=== PATIENT | female | born 1975 | race Caucasian/White ===

== ENCOUNTER 2023-11-12 16:47 | Emergency (ER) | payer MEDICAID ==
[~2023-11-12] VITALS: Ht 149.9 cm; Wt 62.6 kg
[2023-11-12 17:07] VITALS: O2SAT 99
[2023-11-12 18:10] LABS: BASOPHILS % 0.7 % (0.0-2.0); EOSINOPHILS % 0.9 % (0.0-5.0); HEMATOCRIT. 31.5 % (36.0-48.0); HEMOGLOBIN. 10.5 g/dL (12.0-16.0); LYMPHOCYTES % 37.2 % (20.0-50.0); MEAN CORPUSCULAR HGB CONC 33.5 g/dL (31.0-37.0); MEAN CORPUSCULAR VOLUME 80.6 fL (81.0-99.0); MEAN PLATELET VOLUME 8.4 fl (7.4-10.4); MONOCYTES % 6.1 % (2.0-8.0); NEUTROPHILS % 55.1 % (40.0-76.0); PLATELET 324 x1000/uL (130-400); RED BLOOD CELL COUNT 3.91 mill/uL (4.2-5.4); WHITE BLOOD COUNT 6.1 x1000/uL (4.5-11.0)
[2023-11-12 18:26] LABS: ALANINE AMINOTRANSFERASE 14 IU/L (10-49); ALBUMIN 3.8 g/dL (3.2-4.8); ASPARTATE AMINOTRANSFERASE 16 IU/L (<34); BILIRUBIN TOTAL 0.3 mg/dL (0.1-1.0); CALCIUM 8.6 mg/dL (8.7-10.4); CARBON DIOXIDE 28 mEq/L (21-32); CHLORIDE 100 mEq/L (98-107); CREATININE 0.8 mg/dL (0.6-1.0); POTASSIUM 4.1 mEq/L (3.5-5.1); PROTEIN TOTAL 6.4 g/dL (6.0-8.3); SODIUM 135 mEq/L (136-145); UREA NITROGEN BLOOD 9 mg/dL (9-23)
[2023-11-12 18:29] LABS: GLUCOSE 443 mg/dL (70-105)
[2023-11-12 18:36] LABS: HCG SCREEN NEGATIVE
[2023-11-12 18:55] LABS: CLARITY URINE CLEAR (CLEAR); COLOR URINE YELLOW (YELLOW); GLUCOSE URINE 3+ (NEGATIVE); KETONES URINE NEGATIVE (NEGATIVE); LEUKOCYTE ESTERASE URINE NEGATIVE (NEGATIVE); NITRITE URINE NEGATIVE (NEGATIVE); OCCULT BLOOD URINE 1+ (NEGATIVE); PROTEIN URINE 1+ (NEGATIVE); SPECIFIC GRAVITY URINE 1.041 (1.005-1.030); UROBILINOGEN URINE 0.2 E.U./dL (0.2-1.0)
[2023-11-12] MEDS: INSULIN REGULAR (HUMULIN R) 300UNITS/3ML VIAL SUBCUT ONE (19:15)
[2023-11-12] MEDS ORDERED: IBUP-2029 MT (19:15)
[2023-11-12 19:35] VITALS: BP 134/75; PULSE 74; RESP 18; TEMP 98.3
[2023-11-12 19:40] LABS: BACTERIA URINE NONE SEEN; SQUAMOUS EPITHELIAL CELL URINE RARE /lpf (RARE/1+); WBC URINE NONE SEEN /hpf (0-2)
== END 2023-11-12 19:36 | disposition home or self-care (01) ==
LOC: ER 16:47
DX: R10.9 Unspecified abdominal pain (principal); E11.65 Type 2 diabetes mellitus with hyperglycemia; E78.00 Pure hypercholesterolemia, unspecified; E11.9 Type 2 diabetes mellitus without complications; Z98.890 Other specified postprocedural states; Z90.49 Acquired absence of other specified parts of digestive tract
CPT/HCPCS: 99285; 74176; 80053; 81003; 84703; 83690; 85025; 36415; 96372; J1815